=== PATIENT | male | born 1960 | race Caucasian/White ===

== ENCOUNTER 2022-01-29 11:00 | Emergency (ER) | payer BC, MEDICAID ==
[2022-01-29] MEDS ORDERED: Sodium Chloride 0.9% 1,000 ML IV SCH (12:45)
== END 2022-01-29 17:45 | disposition home or self-care (01) ==
LOC: JP.ED 11:00
DX: K92.2 Gastrointestinal hemorrhage, unspecified (principal); F17.210 Nicotine dependence, cigarettes, uncomplicated; Z79.82 Long term (current) use of aspirin; Z79.899 Other long term (current) drug therapy; Z20.822 Contact with and (suspected) exposure to COVID-19
CPT/HCPCS: 36415; 80053; 85025; 86140; 86850; 86900; 86901; 86920; 86922; 87635; 96360; 99285; J7030; U0002

== ENCOUNTER 2022-02-15 08:02 | Day surgery (SDC) | payer MEDICAID ==
[~2022-02-15 08:02] MED LIST: Midazolam 1 MG/ML 2 ML SDV ONE; Propofol 200 MG/20 ML SDV ONE; fentaNYL 100 MCG/2 ML SDV ONE
[2022-02-15] MEDS ORDERED: Lactated Ringers 1,000 ML IV SCH (08:30)
[2022-02-15] MEDS ORDERED: Propofol 200 MG/20 ML SDV ONE (08:58)
== END 2022-02-15 10:30 | disposition home or self-care (01) ==
LOC: JP.SDS 08:02
PROVIDERS: ATTEND Family Medicine
DX: D12.2 Benign neoplasm of ascending colon (principal); K29.50 Unspecified chronic gastritis without bleeding; F17.200 Nicotine dependence, unspecified, uncomplicated; Z88.6 Allergy status to analgesic agent; Z98.890 Other specified postprocedural states
CPT/HCPCS: 43239; 45380; 87081; 88305; J2250; J2704; J3010; J7120